=== PATIENT | female | born 1985 | race African-American/Black ===

== ENCOUNTER 2020-02-27 16:05 | Emergency (ER) | payer OTHER ==
[~2020-02-27] VITALS: Ht 160 cm; Wt 117.9 kg
[2020-02-27 17:21] LABS: URINE BILIRUBIN NEGATIVE (Negative); URINE BLOOD NEGATIVE (Negative); URINE CLARITY CLEAR; URINE COLOR YELLOW; URINE GLUCOSE-RANDOM* NEGATIVE (Negative); URINE KETONES NEGATIVE (Negative); URINE LEUKOCYTES-REFLEX NEGATIVE (Negative); URINE NITRITE-REFLEX NEGATIVE (Negative); URINE PROTEIN (DIPSTICK) NEGATIVE (Negative); URINE UROBILINOGEN 0.2 E.U./dl (0.2-1.0)
[2020-02-27 19:08] LABS: ABSOLUTE NEUTROPHILS 6.9 thou/uL (1.4-8.2); BASOPHILS 0.7 % (0.0-2.0); EOSINOPHILS 0.5 % (0.0-3.0); HEMATOCRIT 30.7 % (37.0-47.0); HEMOGLOBIN 10.1 gm/dL (12.0-15.0); LYMPHOCYTES 14.1 % (24.0-44.0); MCH 22.6 pg (26.0-34.0); MCHC 32.9 g/dL (28.0-37.0); MCV 68.7 fL (80.0-100.0); MONOCYTES 4.1 % (1.0-8.0); PLATELET COUNT 357 thou/uL (150-400); POLYS 80.6 % (36.0-66.0); RBC 4.47 mil/uL (4.20-5.00); RDW 17.1 % (10.5-14.5); WBC 8.6 thou/uL (4.0-11.0)
[2020-02-27] MEDS ORDERED: HYDROCHLOROTHIA25 M2 PO (19:19)
[2020-02-27 19:29] LABS: CALCIUM 8.7 mg/dL (8.5-10.1); CREATININE 0.7 mg/dL (0.6-1.0); POTASSIUM 4.1 mmol/L (3.5-5.1)
[2020-02-27 19:35] LABS: ALBUMIN 3.5 g/dL (3.4-5.0); TOTAL BILIRUBIN 0.3 mg/dL (0.2-1.0); TOTAL PROTEIN 7.2 g/dL (6.4-8.2)
[2020-02-27 19:55] LABS: ANISOCYTOSIS 1+; MICROCYTES 2+; PLATELET ESTIMATE NORMAL
[2020-02-27 20:05] VITALS: BP 126/74
== END 2020-02-27 20:05 | disposition home or self-care (01) ==
LOC: ER 16:05
PROVIDERS: Emergency Medicine
DX: R10.32 Left lower quadrant pain (principal); F17.210 Nicotine dependence, cigarettes, uncomplicated; Z79.899 Other long term (current) drug therapy

== ENCOUNTER 2021-01-17 07:34 | Emergency (ER) | payer OTHER ==
[~2021-01-17] VITALS: Ht 160 cm; Wt 117.9 kg
[~2021-01-17 07:34] MED LIST: HYDROCHLOROTHIA25 M2 PO
[2021-01-17 07:54] VITALS: BP 193/115
[2021-01-17] MEDS ORDERED: NORCO7.5 PO (08:13)
[2021-01-17] MEDS ORDERED: AMOXICILLIN500 M1 PO (08:13)
== END 2021-01-17 08:30 | disposition home or self-care (01) ==
LOC: ER 07:34
DX: R59.1 Generalized enlarged lymph nodes (principal); Z90.721 Acquired absence of ovaries, unilateral; F17.210 Nicotine dependence, cigarettes, uncomplicated

== ENCOUNTER 2021-03-26 02:03 | Emergency (ER) | payer OTHER ==
[~2021-03-26] VITALS: Ht 160 cm; Wt 127.0 kg
[~2021-03-26 02:03] MED LIST changes: +AMOXICILLIN500 M1 PO; +NORCO7.5 PO
[2021-03-26] MEDS ORDERED: NAPROSYN500 MG PO (03:02)
[2021-03-26] MEDS ORDERED: ZOFRAN ODT4 MG PO (03:02)
[2021-03-26 04:01] VITALS: BP 127/60
== END 2021-03-26 04:03 | disposition home or self-care (01) ==
LOC: ER 02:03
DX: R51.9 Headache, unspecified (principal); R11.2 Nausea with vomiting, unspecified

== ENCOUNTER 2021-05-30 17:15 | Emergency (ER) | payer OTHER ==
[~2021-05-30] VITALS: Ht 160 cm; Wt 117.9 kg
[~2021-05-30 17:15] MED LIST changes: +NAPROSYN500 MG PO; +ZOFRAN ODT4 MG PO
[2021-05-30 17:18] VITALS: BP 177/115
== END 2021-05-30 18:13 | disposition home or self-care (01) ==
LOC: ER 17:15
DX: S60.411A Abrasion of left index finger, initial encounter (principal); L08.89 Other specified local infections of the skin and subcutaneous tissue; F17.210 Nicotine dependence, cigarettes, uncomplicated; X58.XXXA Exposure to other specified factors, initial encounter; Y93.89 Activity, other specified; Y92.89 Other specified places as the place of occurrence of the external cause; Y99.9 Unspecified external cause status